=== PATIENT | male | born 2000 | race Caucasian/White ===

== ENCOUNTER 2019-01-07 11:02 | Emergency (ER) | payer OTHER ==
[2019-01-07] MEDS ORDERED: SODIUM CHLORIDE 0.9% 1,000 ML IV ONE (12:23)
[2019-01-07] MEDS ORDERED: ONDANSETRON 4 MG/2 ML VIAL IVP STA (12:23)
[2019-01-07] MEDS ORDERED: KETOROLAC 30 MG/ML VIAL IVP STA (12:23)
--- NOTE | 2019-01-07 12:26 | ED Physician Documentation ---
PD HPI HEADACHE - Stated complaint Stated Complaint: VOMITTING ABD PX - Chief complaint Chief Complaint: Abd Pain - History obtained from History obtained from: Patient - History of Present Illness Timing - onset: Yesterday Timing - details: Still present Worst headache ever?: Worst headache ever? (No) Location: Front Associated symptoms: Nausea, Vomiting Similar symptoms before: No diagnosis - Additional information Additional information: The patient is an otherwise healthy 18-year-old male who presents with headache and vomiting that started last night and continued today. His headache is generalized. He reports mild left upper quadrant abdominal discomfort. He denies fever, cough, diarrhea, or dysuria. He reports having similar symptoms in the past with "viral bug." Review of Systems Constitutional: denies: Fever Eyes: denies: Decreased vision Ears: denies: Tinnitus/ringing Nose: denies: Congestion Throat: denies: Sore throat Cardiac: denies: Chest pain / pressure Respiratory: denies: Dyspnea, Cough GI: reports: Abdominal Pain (mild), Nausea, Vomiting. denies: Diarrhea : denies: Dysuria Skin: denies: Rash Musculoskeletal: denies: Neck pain Neurologic: reports: Headache. denies: Focal weakness, Numbness PD PAST MEDICAL HISTORY - Past Medical History Cardiovascular: None Respiratory: None Neuro: None Endocrine/Autoimmune: None - Present Medications Home Medications: Ambulatory Orders Medication Instructions Recorded Confirmed Promethazine [Phenergan] 25 mg PO Q6H PRN #10 tab 01/07/19 - Allergies Allergies/Adverse Reactions: Allergies Allergy/AdvReac Type Severity Reaction Status Date / Time No Known Drug Allergies Allergy Verified 01/07/19 11:07 - Social History Does the pt smoke?: No PD ED PE NORMAL - Vitals Vital signs reviewed: Yes (normal) - General General: Alert and oriented X 3, Well developed/nourished - HEENT HEENT: Atraumatic, PERRL, EOMI, Ears normal, Pharynx benign, Other (Fundi without papilledema.) - Neck Neck: Supple, no meningeal sign, No adenopathy - Cardiac Cardiac: RRR, No murmur - Respiratory Respiratory: No respiratory distress, Clear bilaterally - Abdomen Abdomen: Soft, Non tender, No organomegaly - Back Back: No CVA TTP - Derm Derm: No rash - Extremities Extremities: No edema, No calf tenderness / cord - Neuro Neuro: Alert and oriented X 3, No motor deficit, No sensory deficit Results - Vitals Vitals: Vital Signs - 24 hr 01/07/19 11:07 Temperature 36.6 C Heart Rate 71 Respiratory 16 Rate O2 Saturation 100 Oxygen O2 Source Room air - Labs Labs: Laboratory Tests 01/07/19 01/07/19 12:31 12:31 WBC 6.5 RBC 5.49 Hgb 15.3 Hct 46.3 MCV 84.3 MCH 27.9 MCHC 33.1 RDW 14.4 Plt Count 209 MPV 9.6 Neut # (Auto) 4.6 Lymph # (Auto) 1.3 L [place] # (Auto) 0.4 Eos # (Auto) 0.1 Baso # (Auto) 0.1 Absolute Nucleated RBC 0.00 Nucleated RBC % 0.0 Sodium 138 Potassium 4.4 Chloride 103 Carbon Dioxide 28 Anion Gap 7.0 BUN 11 Creatinine 0.8 Estimated GFR (MDRD) 125 Glucose 97 Calcium 9.6 Total Bilirubin 0.4 AST 119 H ALT 60 Alkaline Phosphatase 55 Total Protein 7.5 Albumin 4.7 Globulin 2.8 Albumin/Globulin Ratio 1.7 Lipase 36 PD MEDICAL DECISION MAKING - ED course Complexity details: reviewed results, re-evaluated patient, considered differential, d/w patient ED course: The patient's presentation is most consistent with headache with associated n ausea and vomiting. There is no evidence of acute intra-abdominal process. His abdomen is benign on examination. CBC and chemistry panel are normal. His presentation does not suggest meningitis, intracranial hemorrhage, temporal arteritis, or pseudotumor cerebri. Treatment in the emergency department included administration of normal saline 1 L IV, and Zofran 4 mg IV, and ketorolac 30 mg IV. His symptoms improved with the above treatment. He is being discharged with prescription for Phenergan. I discussed with him symptomatic treatment, outpatient follow-up, as well as potentially worrisome signs or symptoms that should prompt reevaluation in the emergency department. Departure - Departure Disposition: 01 Home, Self Care Clinical Impression: Headache Qualifiers: Headache type: unspecified Headache chronicity pattern: acute headache Intractability: not intractable Qualified Code(s): R51 - Headache Vomiting Qualifiers: Vomiting type: unspecified Vomiting Intractability: non-intractable Nausea presence: with nausea Qualified Code(s): R11.2 - Nausea with vomiting, unspecified Condition: Stable Instructions: ED Cephalgia Unspecified Follow-Up: [facility] Carlton [Provider Group] Prescriptions: Promethazine [Phenergan] 25 mg PO Q6H PRN #10 tab PRN Reason: Nausea / Vomiting Comments: Drink plenty of fluids. You can use Phenergan as prescribed if needed for nausea. Follow-up with your primary physician within 1 to 2 weeks if not completely resolved. Return to the emergency department if you develop increasing abdominal pain, persistent vomiting, increasing headache, or otherwise worsening symptoms. Forms: Activity restrictions
[2019-01-07 12:34] LABS: BASOPHILS # (AUTO) 0.1 10^3/uL (0.0-0.1); BASOPHILS % (AUTO) 0.8 %; EOSINOPHILS # (AUTO) 0.1 10^3/uL (0.0-0.7); EOSINOPHILS % (AUTO) 1.2 %; HGB - HEMOGLOBIN 15.3 g/dL (14.0-18.0); LYMPHOCYTES # (AUTO) 1.3 10^3/uL (1.5-3.5); LYMPHOCYTES % (AUTO) 19.8 %; MEAN CORPUSCULAR HEMOGLOBIN 27.9 pg (27.0-31.0); MEAN CORPUSCULAR HGB CONC 33.1 g/dL (32.0-36.0); MEAN CORPUSCULAR VOLUME 84.3 fL (80.0-94.0); MEAN PLATELET VOLUME 9.6 fL (7.4-11.4); MONOCYTES # (AUTO) 0.4 10^3/uL (0.0-1.0); MONOCYTES % (AUTO) 6.6 %; NEUTROPHILS # (AUTO) 4.6 10^3/uL (1.5-6.6); NEUTROPHILS % (AUTO) 71.6 %; PLT - PLATELET COUNT 209 10^3/uL (130-450); RED BLOOD COUNT 5.49 10^6/uL (4.70-6.10); RED CELL DISTRIBUTION WIDTH 14.4 % (12.0-15.0); WHITE BLOOD COUNT 6.5 x10^3/uL (4.8-10.8)
[2019-01-07 12:49] LABS: ALBUMIN 4.7 g/dL (3.2-5.5); ALBUMIN/GLOBULIN RATIO 1.7 (1.0-2.2); BILIRUBIN,TOTAL 0.4 mg/dL (0.2-1.0); CALCIUM 9.6 mg/dL (8.5-10.3); CREATININE 0.8 mg/dL (0.6-1.2); TOTAL PROTEIN 7.5 g/dL (6.7-8.2)
[2019-01-07 14:12] VITALS: BP 129/52
== END 2019-01-07 14:13 | disposition home or self-care (01) ==
LOC: ED 11:02
DX: R51 Headache (principal); R11.2 Nausea with vomiting, unspecified
CPT/HCPCS: 36415; 80053; 83690; 85025; 96361; 96374; 99283

== ENCOUNTER 2019-01-13 07:19 | Emergency (ER) | payer OTHER ==
--- NOTE | 2019-01-13 07:33 | ED Physician Documentation ---
PD HPI NVD - Stated complaint Stated Complaint: N/V - Chief complaint Chief Complaint: Abd Pain - History obtained from History obtained from: Patient - History of Present Illness Timing - onset: Yesterday (afternoon, very shortly after eating lunch (food from the "[employer]"). Had similar about a week ago for a half day then better. Was feeling okay through the week without dietary limitations. Onset nausea and vomiting yesterday, continued into today. Last emesis about 3-4 hours ago.) Timing - duration: Days (1/2) Timing - details: Abrupt onset, Still present Associated symptoms: Abdominal pain (Mainly upper crampy pain.), Loss of appetite, Other (no diarrhea). No: Fever, Chest pain, Hematemesis Contributing factors: Sick contact (1 of his coworkers have similar symptoms and is here with him to be seen as well.), Bad food (He thinks it might be food related as onset did with an 10 to 15 minutes after eating.). No: Travel Improved by: No: Vomiting Worsened by: Eating Similar symptoms before: Diagnosis (similar a week ago, felt possible viral GE and lasted just 1/2 day.) Review of Systems Constitutional: denies: Fever, Chills, Myalgias Nose: denies: Rhinorrhea / runny nose, Congestion Throat: denies: Sore throat Respiratory: denies: Cough GI: reports: Abdominal Pain (upper to mid abd), Nausea, Vomiting. denies: Diarrhea Neurologic: reports: Generalized weakness. denies: Near syncope PD PAST MEDICAL HISTORY - Past Medical History Past Medical History: No Cardiovascular: None Respiratory: None Neuro: None Endocrine/Autoimmune: None - Past Surgical History Past Surgical History: Yes - Present Medications Home Medications: Ambulatory Orders Medication Instructions Recorded Confirmed Famotidine 20 mg PO DAILY #15 tablet 01/13/19 Mag Hydrox/Al Hydrox/Simeth [Adv 10 ml PO Q4H PRN #355 ml 01/13/19 Antacid-Antigas Liquid] Ondansetron Odt [Zofran] 4 mg TL Q6H PRN #10 tablet 01/13/19 - Allergies Allergies/Adverse Reactions: Allergies Allergy/AdvReac Type Severity Reaction Status Date / Time No Known Drug Allergies Allergy Verified 01/13/19 07:55 - Social History Does the pt smoke?: No Smoking Status: Never smoker Does the pt drink ETOH?: No Does the pt have substance abuse?: No - Immunizations Immunizations are current?: No Immunizations: TDAP >10years/unknown PD ED PE NORMAL - Vitals Vital signs reviewed: Yes - General General: Alert and oriented X 3, No acute distress, Well developed/nourished - HEENT HEENT: Pharynx benign. No: Moist mucous membranes - Neck Neck: Supple, no meningeal sign, No adenopathy - Cardiac Cardiac: RRR, No murmur - Respiratory Respiratory: Clear bilaterally - Abdomen Abdomen: Normal bowel sounds, Soft, Non distended, No organomegaly, Other (Mild general tenderness but particularly the epigastric area without any guarding percussion or rebound tenderness. He is not tender in the right lower quadrant per se.) - Rectal Rectal: Deferred - Back Back: No CVA TTP - Derm Derm: Normal color, Warm and dry Results - Vitals Vitals: Vital Signs - 24 hr 01/13/19 07:23 Temperature 36.8 C Heart Rate 72 Respiratory 18 Rate Blood Pressure 109/55 L O2 Saturation 99 Oxygen O2 Source Room air Departure - Departure Disposition: 01 Home, Self Care Clinical Impression: Nausea and vomiting Qualifiers: Vomiting type: unspecified Vomiting Intractability: non-intractable Qualified Code(s): R11.2 - Nausea with vomiting, unspecified Abdominal pain Qualifiers: Abdominal location: upper abdomen, unspecified Qualified Code(s): R10.10 - Upper abdominal pain, unspecified Condition: Stable Record reviewed to determine appropriate education?: Yes Instructions: ED Gastroenteritis Vs Food Poison Follow-Up: ANNA Carlton [Provider Group] Prescriptions: Famotidine 20 mg PO DAILY #15 tablet Mag Hydrox/Al Hydrox/Simeth [Adv Antacid-Antigas Liquid] 10 ml PO Q4H PRN #355 ml PRN Reason: Abdominal Pain Ondansetron Odt [Zofran] 4 mg TL Q6H PRN #10 tablet PRN Reason: Nausea / Vomiting Comments: Small frequent fluids and bland food today and progress diet as able. Use ondansetron as needed for nausea. Add Mylanta antacid as needed for upset stomach. Since you had this episode and an episode last week, I presume your stomach is rather irritated and so I would suggest a acid reducing medicine (famotidine) daily for a week or 2 to allow better healing. Rest off work today. I would anticipate improvement into tomorrow. Recheck if not better tomorrow. Forms: Activity restrictions
[2019-01-13] MEDS ORDERED: ONDANSETRON ODT 4 MG TABLET TL STA (07:50)
[2019-01-13] MEDS ORDERED: ACETAMINOPHEN 325 MG TABLET PO STA (07:51)
[2019-01-13] MEDS ORDERED: MAG HYDROX/AL HYDROX/SIMETH 30 ML UDC PO STA (07:51)
[2019-01-13 09:32] VITALS: BP 111/53
== END 2019-01-13 09:31 | disposition home or self-care (01) ==
LOC: ED 07:19
DX: R10.13 Epigastric pain (principal); R11.2 Nausea with vomiting, unspecified
CPT/HCPCS: 99283; A9270; Q0162

== ENCOUNTER 2019-12-24 14:43 | Emergency (ER) | payer OTHER ==
[2019-12-24 14:58] VITALS: BP 119/75
--- NOTE | 2019-12-24 15:27 | ED Physician Documentation ---
PD HPI NVD - Stated complaint Stated Complaint: VOMITING - Chief complaint Chief Complaint: Abd Pain - History obtained from History obtained from: Patient - History of Present Illness Timing - onset: Enter time (0900), Today Timing - duration: Hours Timing - details: Abrupt onset, Now resolved Associated symptoms: Abdominal pain Contributing factors: Bad food Improved by: Vomiting Worsened by: Eating Similar symptoms before: Diagnosis (gastroenteritis) Recently seen: Not recently seen - Additonal information Additional information: 19-year-old male with past visits for abdominal pain and vomiting has developed vomiting after eating a turkey burger this morning. He works in the [employer] and he states he cooked with a burger it looks done it tasted well and about half an hour after eating he had abdominal pain and vomited. He does indicate that he takes ibuprofen periodically for his abdominal pain and he gets abdominal pain quite frequently.He does not always take this with food. He relates that he has tried some Tums with some improvement in his abdominal pain but that he frequently gets pains in his abdomen that he has had episodes of vomiting intermittently as well. He has not been on a proton pump inhibitor or an H2 kirstin previously. Review of Systems Constitutional: denies: Fever Eyes: denies: Decreased vision Ears: denies: Ear pain Nose: denies: Rhinorrhea / runny nose Throat: denies: Sore throat Cardiac: denies: Chest pain / pressure, Palpitations Respiratory: denies: Dyspnea, Cough GI: reports: Abdominal Pain, Nausea, Vomiting : denies: Dysuria, Frequency PD PAST MEDICAL HISTORY - Past Medical History Past Medical History: No Cardiovascular: None Respiratory: None Neuro: None Endocrine/Autoimmune: None GI: None : None HEENT: None Psych: None Musculoskeletal: None Derm: None - Past Surgical History Past Surgical History: Yes - Present Medications Home Medications: Ambulatory Orders Medication Instructions Recorded Confirmed Famotidine 20 mg PO DAILY #15 tablet 01/13/19 Mag Hydrox/Al Hydrox/Simeth [Adv 10 ml PO Q4H PRN #355 ml 01/13/19 Antacid-Antigas Liquid] Ondansetron Odt [Zofran] 4 mg TL Q6H PRN #10 tablet 01/13/19 - Allergies Allergies/Adverse Reactions: Allergies Allergy/AdvReac Type Severity Reaction Status Date / Time No Known Drug Allergies Allergy Verified 12/24/19 14:56 - Social History Does the pt smoke?: No Smoking Status: Never smoker Does the pt drink ETOH?: No Does the pt have substance abuse?: No - Immunizations Immunizations are current?: No Immunizations: TDAP >10years/unknown - POLST Patient has POLST: No PD ED PE NORMAL - Vitals Vital signs reviewed: Yes (Normal) - General General: Alert and oriented X 3, No acute distress, Well developed/nourished - HEENT HEENT: Atraumatic, PERRL, EOMI - Neck Neck: Supple, no meningeal sign, No bony TTP - Cardiac Cardiac: RRR, No murmur - Respiratory Respiratory: No respiratory distress, Clear bilaterally - Abdomen Abdomen: Normal bowel sounds, Soft, Non tender, Non distended, No organomegaly - Back Back: No CVA TTP, No spinal TTP - Derm Derm: Normal color, Warm and dry, No rash - Extremities Extremities: No deformity, No edema - Neuro Neuro: Alert and oriented X 3, hot worker 2-12 intact, No motor deficit, No sensory deficit, Normal speech Eye Opening: Spontaneous Motor: Obeys Commands Verbal: Oriented GCS Score: 15 - Psych Psych: Normal mood, Normal affect Results - Vitals Vitals: Vital Signs - 24 hr 12/24/19 14:57 Temperature 36.8 C Heart Rate 75 Respiratory 16 Rate Blood Pressure 119/75 O2 Saturation 100 Oxygen O2 Source Room air PD MEDICAL DECISION MAKING - ED course Complexity details: reviewed old records, reviewed results, re-evaluated patient, considered differential, d/w patient ED course: 19-year-old male with what sounds like a history of gastritis that has not been treated has had an episode of vomiting after eating this morning. He has had these episodes previously and they have just generally been benign and he does have some medicine for nausea at home. He does not feel like he can go back to work this afternoon. I encouraged the patient to begin treatment for gastritis with Pepcid AC and take this on a regular basis and to follow-up with his primary care doctor. Departure - Departure Disposition: 01 Home, Self Care Clinical Impression: Gastritis Qualifiers: Gastritis type: unspecified gastritis Chronicity: acute Gastritis bleeding: without bleeding Qualified Code(s): K29.00 - Acute gastritis without bleeding Condition: Stable Instructions: ED PUD Vs Gastritis Follow-Up: ANNA Carlton [Provider Group] Comments: By your history it sounds like you have gastritis or irritation to the stomach lining this usually requires a course of some medication to reduce the acid in your stomach for at least 2 weeks. My recommendation is to take Pepcid AC daily for the next 2 weeks. In addition I recommend not taking ibuprofen and avoid alcohol. You will likely have significant improvement in your symptoms and you may have recurrence in your symptoms when you stop your medication. Follow-up with your primary care doctor further work-up might be indicated. Forms: Activity restrictions
== END 2019-12-24 15:35 | disposition home or self-care (01) ==
LOC: ED 14:43
DX: K29.00 Acute gastritis without bleeding (principal)
CPT/HCPCS: 99282; 99284

== ENCOUNTER 2020-01-22 01:44 | Emergency (ER) | payer OTHER ==
--- NOTE | 2020-01-22 02:12 | ED Physician Documentation ---
PD HPI NVD - Stated complaint Stated Complaint: ABD PX/VOMITING - Chief complaint Chief Complaint: Abd Pain - History obtained from History obtained from: Patient - History of Present Illness Timing - onset: How many hours ago (2) Timing - details: Abrupt onset, Waxing and waning Pain level now: 4 Associated symptoms: Abdominal pain Improved by: Other (no ameliorating factors) Worsened by: Other (no exacerbating factors) Recently seen: Emergency Dept (T+R from this ED one month ago for similar symptoms) - Additonal information Additional information: c/o nausea, vomiting, and abdominal pain across upper abdomen. Onset shortly after eating while at work, approximately 2 hours [employer]. He has had similar episodes in the past (including T+R from this ED 1 month ago) Review of Systems Constitutional: denies: Fever Cardiac: reports: Reviewed and negative Respiratory: reports: Reviewed and negative GI: reports: Abdominal Pain, Nausea, Vomiting. denies: Constipation, Diarrhea, Hematemesis, Bloody / black stool : denies: Dysuria, Frequency Musculoskeletal: denies: Back pain PD PAST MEDICAL HISTORY - Past Medical History Cardiovascular: None Respiratory: None Neuro: None Endocrine/Autoimmune: None GI: None : None HEENT: None Psych: None Musculoskeletal: None Derm: None - Past Surgical History Past Surgical History: Yes - Present Medications Home Medications: Ambulatory Orders Medication Instructions Recorded Confirmed Lidocaine HCl [Lidocaine HCl 15 ml MM Q4HR #90 ml 01/22/20 Viscous] Omeprazole 20 mg PO DAILY #14 capsule. 01/22/20 - Allergies Allergies/Adverse Reactions: Allergies Allergy/AdvReac Type Severity Reaction Status Date / Time No Known Drug Allergies Allergy Verified 01/22/20 01:58 - Social History Does the pt smoke?: No Smoking Status: Never smoker Does the pt drink ETOH?: No Does the pt have substance abuse?: No - Immunizations Immunizations are current?: No Immunizations: TDAP >10years/unknown - POLST Patient has POLST: No PD ED PE NORMAL - Vitals Vital signs reviewed: Yes - General General: Alert and oriented X 3, No acute distress, Well developed/nourished - HEENT HEENT: Moist mucous membranes - Cardiac Cardiac: RRR, No murmur - Respiratory Respiratory: No respiratory distress, Clear bilaterally - Abdomen Abdomen: Normal bowel sounds, Soft, Non tender, Non distended - Back Back: No CVA TTP Results - Vitals Vitals: Vital Signs - 24 hr 01/22/20 01/22/20 01:54 03:26 Temperature 36.7 C Heart Rate 69 65 Respiratory 16 16 Rate Blood Pressure 116/53 L 114/63 O2 Saturation 98 100 Oxygen O2 Source Room air - Labs Labs: Laboratory Tests 01/22/20 01/22/20 02:30 02:30 WBC 10.0 RBC 4.81 Hgb 14.4 Hct 42.7 MCV 88.8 MCH 29.9 MCHC 33.7 RDW 12.5 Plt Count 236 MPV 11.2 Neut # (Auto) 7.0 H Lymph # (Auto) 1.6 [place] # (Auto) 0.7 Eos # (Auto) 0.5 Baso # (Auto) 0.1 Absolute Nucleated RBC 0.00 Nucleated RBC % 0.0 Sodium 138 Potassium 3.7 Chloride 104 Carbon Dioxide 28 Anion Gap 6.0 BUN 12 Creatinine 0.9 Estimated GFR (MDRD) 108 Glucose 103 H Calcium 9.3 Total Bilirubin 0.9 AST 24 ALT 18 Alkaline Phosphatase 53 Total Protein 7.5 Albumin 4.7 Globulin 2.8 Albumin/Globulin Ratio 1.7 Lipase 31 PD MEDICAL DECISION MAKING - ED course Complexity details: reviewed old records, reviewed results, re-evaluated patient, considered differential, d/w patient Departure - Departure Disposition: 01 Home, Self Care Clinical Impression: Abdominal pain Qualifiers: Abdominal location: upper abdomen, unspecified Qualified Code(s): R10.10 - Upper abdominal pain, unspecified Condition: Good Instructions: ED Abdominal Pain Unkn Cause Male Follow-Up: ANNA Carlton [Provider Group] Prescriptions: Lidocaine HCl [Lidocaine HCl Viscous] 15 ml MM Q4HR #90 ml Omeprazole 20 mg PO DAILY #14 capsule.dr Discharge Date/Time: 01/22/20 03:26
[2020-01-22] MEDS: MAG HYDROX/AL HYDROX/SIMETH 30 ML UDC PO STA (02:35)
[2020-01-22] MEDS: PANTOPRAZOLE 40 MG VIAL IVP STA (02:35)
[2020-01-22] MEDS: LIDOCAINE VISCOUS 2% 15 ML UDC MM STA (02:36)
[2020-01-22] MEDS: SODIUM CHLORIDE 0.9% 1,000 ML IV STA (02:36)
[2020-01-22 02:38] LABS: BASOPHILS # (AUTO) 0.1 10^3/uL (0.0-0.1); BASOPHILS % (AUTO) 0.5 %; EOSINOPHILS # (AUTO) 0.5 10^3/uL (0.0-0.7); EOSINOPHILS % (AUTO) 5.2 %; HGB - HEMOGLOBIN 14.4 g/dL (14.0-18.0); LYMPHOCYTES # (AUTO) 1.6 10^3/uL (1.5-3.5); LYMPHOCYTES % (AUTO) 16.4 %; MEAN CORPUSCULAR HEMOGLOBIN 29.9 pg (27.0-31.0); MEAN CORPUSCULAR HGB CONC 33.7 g/dL (32.0-36.0); MEAN CORPUSCULAR VOLUME 88.8 fL (80.0-94.0); MEAN PLATELET VOLUME 11.2 fL (7.4-11.4); MONOCYTES # (AUTO) 0.7 10^3/uL (0.0-1.0); MONOCYTES % (AUTO) 7.2 %; NEUTROPHILS % (AUTO) 70.3 %; PLT - PLATELET COUNT 236 10^3/uL (130-450); RED BLOOD COUNT 4.81 10^6/uL (4.70-6.10); RED CELL DISTRIBUTION WIDTH 12.5 % (12.0-15.0)
[2020-01-22 02:52] LABS: ALBUMIN 4.7 g/dL (3.2-5.5); ALBUMIN/GLOBULIN RATIO 1.7 (1.0-2.2); BILIRUBIN,TOTAL 0.9 mg/dL (0.2-1.0); CALCIUM 9.3 mg/dL (8.5-10.3); CREATININE 0.9 mg/dL (0.6-1.2); TOTAL PROTEIN 7.5 g/dL (6.7-8.2)
[2020-01-22 03:27] VITALS: BP 114/63
== END 2020-01-22 03:26 | disposition home or self-care (01) ==
LOC: ED 01:44
DX: R10.10 Upper abdominal pain, unspecified (principal); R11.2 Nausea with vomiting, unspecified
CPT/HCPCS: 36415; 80053; 83690; 85025; 96374; 99283; 99284; A9270

== ENCOUNTER 2020-08-12 06:31 | Emergency (ER) | payer OTHER ==
--- NOTE | 2020-08-12 07:19 | ED Physician Documentation ---
PD HPI CHEST PAIN - Stated complaint Stated Complaint: N/V - Chief complaint Chief Complaint: Abd Pain - History obtained from History obtained from: Patient - Additional information Additional information: 20-year-old gentleman, active duty in the [employer]. He has frequent bouts of nausea, he states that it seems to come with season changes and has it about once every 3 to 4 months. He had an episode 2 nights ago where he was nauseous with mild right-sided chest pain, and this morning this recurred. He is feeling better now and has no symptoms at this point. His weights been stable. He is never had an endoscopy. States that in the past he has been seen here nausea medicine has been helpful. Bowel movements are normal. No history of abdominal or other surgeries. Review of Systems Constitutional: denies: Fever, Chills, Weight Loss Cardiac: denies: Palpitations Respiratory: denies: Dyspnea, Cough GI: reports: Nausea, Vomiting. denies: Abdominal Pain, Diarrhea PD PAST MEDICAL HISTORY - Past Medical History Cardiovascular: None Respiratory: None Neuro: None Endocrine/Autoimmune: None GI: None : None HEENT: None Psych: None Musculoskeletal: None Derm: None - Past Surgical History Past Surgical History: Yes - Present Medications Home Medications: Ambulatory Orders Medication Instructions Recorded Confirmed Ondansetron Odt [Zofran] 4 mg TL Q6H PRN #10 tablet 08/12/20 - Allergies Allergies/Adverse Reactions: Allergies Allergy/AdvReac Type Severity Reaction Status Date / Time No Known Drug Allergies Allergy Verified 08/12/20 06:56 - Social History Does the pt smoke?: No Smoking Status: Never smoker Does the pt drink ETOH?: No Does the pt have substance abuse?: No - Immunizations Immunizations are current?: Yes Immunizations: TDAP >10years/unknown - POLST Patient has POLST: No PD ED PE NORMAL - Vitals Vital signs reviewed: Yes - General General: Alert and oriented X 3, No acute distress - Neck Neck: Supple, no meningeal sign, No bony TTP - Cardiac Cardiac: RRR, No murmur - Respiratory Respiratory: No respiratory distress, Clear bilaterally - Abdomen Abdomen: Non tender - Back Back: No CVA TTP, No spinal TTP - Derm Derm: Normal color, Warm and dry - Extremities Extremities: No edema, No calf tenderness / cord - Neuro Neuro: Alert and oriented X 3, Normal speech Results - Vitals Vitals: Vital Signs - 24 hr 08/12/20 08/12/20 06:40 06:55 Temperature 36.7 C 36.7 C Heart Rate 59 L 59 L Respiratory 18 18 Rate Blood Pressure 128/85 H 128/85 H O2 Saturation 100 100 Oxygen O2 Source Room air - EKG (time done) 0718 Rate: Rate (enter#) (67) Rhythm: NSR [place]: Normal Intervals: Normal MA QRS: Normal Ischemia: Normal ST segments Computer interpretation: Agree with computer PD MEDICAL DECISION MAKING - ED course ED course: 20-year-old gentleman has recurrent nausea and vomiting seasonally. States nausea medicine has been helpful. His symptoms are gone at this point, and his exam is benign. Given the complaint of chest pain, an EKG was done without pertinent positive findings, only sinus arrhythmia. Departure - Departure Disposition: 01 Home, Self Care Clinical Impression: Nausea and vomiting Qualifiers: Vomiting type: unspecified Vomiting Intractability: non-intractable Qualified Code(s): R11.2 - Nausea with vomiting, unspecified Instructions: ED Nausea Vomiting Prescriptions: Ondansetron Odt [Zofran] 4 mg TL Q6H PRN #10 tablet PRN Reason: Nausea / Vomiting Comments: [place] Consider referral for upper endoscopy given recurrent symptoms. Return if worse. Forms: Activity restrictions
[2020-08-12 07:33] VITALS: BP 106/56
== END 2020-08-12 07:33 | disposition home or self-care (01) ==
LOC: ED 06:31
DX: R11.2 Nausea with vomiting, unspecified (principal); R07.9 Chest pain, unspecified
CPT/HCPCS: 93005; 99283; 99284

== ENCOUNTER 2020-12-14 15:47 | Emergency (ER) | payer OTHER ==
[2020-12-14 17:18] LABS: BASOPHILS % (AUTO) 0.4 %; EOSINOPHILS % (AUTO) 0.4 %; LYMPHOCYTES # (AUTO) 1.3 10^3/uL (1.5-3.5); LYMPHOCYTES % (AUTO) 12.4 %; MEAN CORPUSCULAR HEMOGLOBIN 28.8 pg (27.0-31.0); MEAN CORPUSCULAR HGB CONC 33.3 g/dL (32.0-36.0); MEAN CORPUSCULAR VOLUME 86.3 fL (80.0-94.0); MEAN PLATELET VOLUME 10.9 fL (7.4-11.4); MONOCYTES # (AUTO) 0.6 10^3/uL (0.0-1.0); MONOCYTES % (AUTO) 5.1 %; NEUTROPHILS # (AUTO) 8.8 10^3/uL (1.5-6.6); NEUTROPHILS % (AUTO) 81.3 %; PLT - PLATELET COUNT 189 10^3/uL (130-450); RED BLOOD COUNT 4.52 10^6/uL (4.70-6.10); RED CELL DISTRIBUTION WIDTH 12.5 % (12.0-15.0); WHITE BLOOD COUNT 10.8 x10^3/uL (4.8-10.8)
[2020-12-14 17:32] LABS: ALBUMIN 4.3 g/dL (3.2-5.5); ALBUMIN/GLOBULIN RATIO 1.8 (1.0-2.2); BILIRUBIN,TOTAL 0.3 mg/dL (0.2-1.0); CALCIUM 8.4 mg/dL (8.5-10.3); CREATININE 0.9 mg/dL (0.6-1.2); POTASSIUM 3.4 mmol/L (3.5-5.0); TOTAL PROTEIN 6.7 g/dL (6.7-8.2)
[2020-12-14] MEDS ORDERED: ONDANSETRON 4 MG/2 ML VIAL IVP STA (17:46)
[2020-12-14 18:23] LABS: BILIRUBIN,URINE NEGATIVE (NEGATIVE); GLUCOSE, URINE (UA) NEGATIVE (NEGATIVE); KETONES,URINE (UA) TRACE mg/dL (NEGATIVE); LEUKOCYTE ESTERASE, URINE NEGATIVE (NEGATIVE); NITRITE,URINE NEGATIVE (NEGATIVE); OCCULT BLOOD,URINE NEGATIVE (NEGATIVE); PH,URINE 6.5 PH (5.0-7.5); PROTEIN,URINE NEGATIVE (NEGATIVE); UROBILINOGEN,URINE 0.2 (NORMAL) E.U./dL (NORMAL)
[2020-12-14 18:25] LABS: CLARITY,URINE CLEAR (CLEAR)
--- NOTE | 2020-12-14 18:27 | ED Physician Documentation ---
PD HPI NVD - Stated complaint Stated Complaint: N/V - Chief complaint Chief Complaint: Abd Pain - History obtained from History obtained from: Patient, EMS - History of Present Illness Timing - onset: How many hours ago (2) Timing - duration: Hours (2) Timing - details: No: Abrupt onset, Gradual onset, Still present, Now resolved, Constant, Intermittant, Waxing and waning, Still present in ED Pain level max: 5 Pain level now: 0 Associated symptoms: No: Fever, Abdominal pain, Chest pain, Hematemesis, Melena, Hematochezia, Dizzy, Near syncope / syncope, Loss of appetite Contributing factors: No: Sick contact, Bad food, Travel, Recent antibiotics, A lcohol use, Anticoagulated, Diabetes Improved by: Vomiting Worsened by: Eating Recently seen: Not recently seen - Additonal information Additional information: Patient is a 20-year-old male who states that he ate lunch today when he began to have nausea and vomiting afterwards. States that this lasted for about 2 hours. He states he feels better now. No bad food that he is aware of. No fevers. No chills. Did have crampy abdominal pain initially but this is since resolved. No blood in the vomit. No blood in the stool. Worse with eating, better with vomiting. Review of Systems Ten Systems: 10 systems reviewed and negative Constitutional: denies: Fever, Chills Cardiac: denies: Chest pain / pressure Respiratory: denies: Cough Skin: denies: Rash Musculoskeletal: denies: Neck pain, Back pain Neurologic: denies: Headache PD PAST MEDICAL HISTORY - Past Medical History Past Medical History: Yes Cardiovascular: None Respiratory: None Neuro: None Endocrine/Autoimmune: None GI: GERD : None HEENT: None Psych: Anxiety, Panic attacks Musculoskeletal: None Derm: None - Past Surgical History Past Surgical History: Yes - Present Medications Home Medications: Ambulatory Orders Medication Instructions Recorded Confirmed Ondansetron Odt [Zofran] 4 mg TL Q6H PRN #10 tablet 08/12/20 12/14/20 Ondansetron Odt [Zofran] 4 mg TL Q6H PRN #10 tablet 12/14/20 - Allergies Allergies/Adverse Reactions: Allergies Allergy/AdvReac Type Severity Reaction Status Date / Time No Known Drug Allergies Allergy Verified 12/14/20 15:53 - Social History Does the pt smoke?: No Smoking Status: Never smoker Does the pt drink ETOH?: Yes Does the pt have substance abuse?: No - Immunizations Immunizations are current?: Yes Immunizations: TDAP >10years/unknown - POLST Patient has POLST: No PD ED PE NORMAL - Vitals Vital signs reviewed: Yes - General General: Alert and oriented X 3, No acute distress, Well developed/nourished - HEENT HEENT: PERRL, Moist mucous membranes - Neck Neck: Supple, no meningeal sign - Cardiac Cardiac: RRR, Strong equal pulses - Respiratory Respiratory: No respiratory distress, Clear bilaterally - Abdomen Abdomen: Soft, Non tender, Non distended - Derm Derm: Warm and dry, No rash - Extremities Extremities: No edema - Neuro Neuro: Alert and oriented X 3 - Psych Psych: Normal mood, Normal affect Results - Vitals Vitals: Vital Signs - 24 hr 12/14/20 12/14/20 12/14/20 15:54 16:17 18:16 Temperature 36.6 C Heart Rate 78 62 69 Respiratory 16 16 16 Rate Blood Pressure 123/68 101/65 100/45 L O2 Saturation 100 100 100 12/14/20 18:34 Temperature 37 C Heart Rate 97 Respiratory 16 Rate Blood Pressure 110/50 L O2 Saturation 99 Oxygen O2 Source Room air - Labs Labs: Laboratory Tests 12/14/20 12/14/20 12/14/20 17:12 17:12 18:10 WBC 10.8 RBC 4.52 L Hgb 13.0 L Hct 39.0 L MCV 86.3 MCH 28.8 MCHC 33.3 RDW 12.5 Plt Count 189 MPV 10.9 Neut # (Auto) 8.8 H Lymph # (Auto) 1.3 L [place] # (Auto) 0.6 Eos # (Auto) 0.0 Baso # (Auto) 0.0 Absolute Nucleated RBC 0.00 Nucleated RBC % 0.0 Sodium 133 L Potassium 3.4 L Chloride 100 L Carbon Dioxide 25 Anion Gap 8.0 BUN 15 Creatinine 0.9 Estimated GFR (MDRD) 107 Glucose 100 Calcium 8.4 L Total Bilirubin 0.3 AST 24 ALT 23 Alkaline Phosphatase 39 L Total Protein 6.7 Albumin 4.3 Globulin 2.4 Albumin/Globulin Ratio 1.8 Lipase 31 Urine Color YELLOW Urine Clarity CLEAR Urine pH 6.5 Ur Specific [place] 1.020 Urine Protein NEGATIVE Urine Glucose (UA) NEGATIVE Urine Ketones TRACE Urine Occult Blood NEGATIVE Urine Nitrite NEGATIVE Urine Bilirubin NEGATIVE Urine Urobilinogen 0.2 (NORMAL) Ur Leukocyte Esterase NEGATIVE Ur Microscopic Review NOT INDICATED Urine Culture Comments NOT INDICATED PD MEDICAL DECISION MAKING - ED course Complexity details: reviewed results, re-evaluated patient, considered differential, d/w patient ED course: Patient is well-appearing, nontoxic. Afebrile. No significant lab abnormalities. Feels better after IV fluids and Zofran. Tolerating p.o. without difficulty. Appears to be likely a foodborne illness given the rapid onset and rapid resolution. Patient counseled regarding signs and symptoms for which I believe and urgent re-evaluation would be necessary. Patient with good understanding of and agreement to plan and is comfortable going home at this time This document was made in part using voice recognition software. While efforts are made to proofread this document, sound alike and grammatical errors may occur. Departure - Departure Disposition: 01 Home, Self Care Clinical Impression: Food poisoning Condition: Good Instructions: ED Gastroenteritis Vs Food Poison Follow-Up: your,doctor in 1 week if not better [Other] Prescriptions: Ondansetron Odt [Zofran] 4 mg TL Q6H PRN #10 tablet PRN Reason: Nausea / Vomiting Comments: This was likely a case of food poisoning today. These episodes tend to come on abruptly and resolve rather quickly. Follow-up with your doctor as needed for further care. You can use the Zofran for any further nausea or vomiting. Discharge Date/Time: 12/14/20 18:34
[2020-12-14 18:34] VITALS: BP 110/50
== END 2020-12-14 18:34 | disposition home or self-care (01) ==
LOC: EDUNIT# → ED 15:47
DX: A05.9 Bacterial foodborne intoxication, unspecified (principal)
CPT/HCPCS: 36415; 80053; 81001; 81003; 83690; 85025; 87086; 96374; 99284

== ENCOUNTER 2021-01-12 18:19 | Emergency (ER) | payer OTHER ==
[2021-01-12 18:27] VITALS: BP 113/59
--- NOTE | 2021-01-12 19:18 | ED Physician Documentation ---
History of Present Illness - Stated complaint Stated Complaint: SOA - Chief complaint Chief Complaint: Resp - History obtained from History obtained from: Patient - History of Present Illness Timing: Today Pain level max: 0 Pain level now: 0 - Additonal information Additional information: 20-year-old male presents to the emergency department stating he had a panic attack today at home. Vomited x2 and was hyperventilating. He states when he arrived in the emergency department symptoms resolved and currently feels better. No fever. No cough. Nothing makes it better or worse. Has had increasing anxiety and panic attacks recently. [place] No suicidal or homicidal ideation. No hallucinations or delusions. Review of Systems Constitutional: denies: Fever, Chills Nose: denies: Rhinorrhea / runny nose, Congestion Throat: denies: Sore throat Cardiac: denies: Chest pain / pressure, Palpitations Respiratory: denies: Cough : denies: Dysuria Skin: denies: Rash Musculoskeletal: denies: Neck pain, Back pain Neurologic: denies: Headache PD PAST MEDICAL HISTORY - Past Medical History Past Medical History: No Cardiovascular: None Respiratory: None Neuro: None Endocrine/Autoimmune: None GI: GERD : None HEENT: None Psych: Anxiety, Panic attacks Musculoskeletal: None Derm: None - Past Surgical History Past Surgical History: Yes - Present Medications Home Medications: Ambulatory Orders Medication Instructions Recorded Confirmed No Known Home Medications 01/12/21 01/12/21 - Allergies Allergies/Adverse Reactions: Allergies Allergy/AdvReac Type Severity Reaction Status Date / Time No Known Drug Allergies Allergy Verified 01/12/21 18:22 - Social History Does the pt smoke?: No Smoking Status: Never smoker Does the pt drink ETOH?: Yes Does the pt have substance abuse?: No - Immunizations Immunizations are current?: Yes Immunizations: TDAP >10years/unknown - POLST Patient has POLST: No PD ED PE NORMAL - Vitals Vital signs reviewed: Yes - General General: Alert and oriented X 3, No acute distress, Well developed/nourished - HEENT HEENT: PERRL, Moist mucous membranes - Neck Neck: Supple, no meningeal sign - Cardiac Cardiac: RRR, Strong equal pulses - Respiratory Respiratory: No respiratory distress, Clear bilaterally - Abdomen Abdomen: Soft, Non tender, Non distended - Derm Derm: Warm and dry - Extremities Extremities: No edema - Neuro Neuro: Alert and oriented X 3, book illustrator 2-12 intact, No motor deficit, No sensory deficit, Normal speech Eye Opening: Spontaneous Motor: Obeys Commands Verbal: Oriented GCS Score: 15 - Psych Psych: Normal mood, Normal affect Results - Vitals Vitals: Vital Signs - 24 hr 01/12/21 18:23 Temperature 36.8 C Heart Rate 62 Respiratory 18 Rate Blood Pressure 113/59 L O2 Saturation 100 Oxygen O2 Source Room air PD MEDICAL DECISION MAKING - ED course Complexity details: considered differential, d/w patient ED course: Patient is asymptomatic in the emergency department. He states that this is similar to his normal panic attack. Patient does not want any further work-up at this time. Recommend that he follow-up closely with his doctor for further care. Patient counseled regarding signs and symptoms for which I believe and urgent re-evaluation would be necessary. Patient with good understanding of and agreement to plan and is comfortable going home at this time This document was made in part using voice recognition software. While efforts are made to proofread this document, sound alike and grammatical errors may occur. Departure - Departure Disposition: 01 Home, Self Care Clinical Impression: Panic attack Vomiting Qualifiers: Vomiting type: unspecified Vomiting Intractability: non-intractable Nausea presence: without nausea Qualified Code(s): R11.11 - Vomiting without nausea Condition: Good Instructions: ED Panic Attack, ED Nausea Vomiting Follow-Up: your,doctor within 1 week [Other] [facility] [Provider Group] Comments: As you stated that your anxiety is increasing today, you need to follow-up with your doctor to discuss your anxiety and treatment going forward. Return if you worsen. Discharge Date/Time: 01/12/21 19:20
== END 2021-01-12 19:20 | disposition home or self-care (01) ==
LOC: ED 18:19
DX: F41.0 Panic disorder [episodic paroxysmal anxiety] (principal)
CPT/HCPCS: 99283; 99284

== ENCOUNTER 2021-01-13 05:52 | Emergency (ER) | payer OTHER ==
[2021-01-13] MEDS ORDERED: LIDOCAINE VISCOUS 2% 15 ML UDC MM STA (06:24)
[2021-01-13] MEDS ORDERED: MAG HYDROX/AL HYDROX/SIMETH 30 ML UDC PO STA (06:24)
[2021-01-13] MEDS ORDERED: diphenhydrAMINE ELIXIR 25 MG/10 ML UDC PO STA (06:24)
[2021-01-13] MEDS ORDERED: hydrOXYzine PAMOATE 25 MG CAPSULE PO STA (06:59)
--- NOTE | 2021-01-13 07:01 | ED Physician Documentation ---
History of Present Illness - Stated complaint Stated Complaint: PANIC ATTACK - Chief complaint Chief Complaint: MHE - History obtained from History obtained from: Patient - Additonal information Additional information: 20-year-old with past medical history of gastroesophageal reflux and anxiety presents with panic attack this morning. Patient states that they have been ramping up recently and he has had to last week and through this week. He has associated gastrointestinal upset that he says is only triggered when he is having a panic attack. Patient otherwise felt normal earlier. Review of Systems Ten Systems: 10 systems reviewed and negative Constitutional: denies: Fever Cardiac: reports: Palpitations. denies: Chest pain / pressure Respiratory: reports: Dyspnea GI: reports: Abdominal Pain, Nausea, Other (Belching). denies: Vomiting Psychiatric: reports: Anxiety PD PAST MEDICAL HISTORY - Past Medical History Past Medical History: Yes Cardiovascular: None Respiratory: None Neuro: None Endocrine/Autoimmune: None GI: GERD : None HEENT: None Psych: Anxiety, Panic attacks Musculoskeletal: None Derm: None - Past Surgical History Past Surgical History: Yes - Present Medications Home Medications: Ambulatory Orders Medication Instructions Recorded Confirmed hydrOXYzine pamoate [Hydroxyzine 25 mg PO Q6H PRN #30 tab 01/13/21 Pamoate] - Allergies Allergies/Adverse Reactions: Allergies Allergy/AdvReac Type Severity Reaction Status Date / Time No Known Drug Allergies Allergy Verified 01/12/21 18:22 - Social History Does the pt smoke?: No Smoking Status: Never smoker Does the pt drink ETOH?: Yes Does the pt have substance abuse?: No - Immunizations Immunizations are current?: Yes Immunizations: TDAP >10years/unknown - POLST Patient has POLST: No PD ED PE NORMAL - Vitals Vital signs reviewed: Yes - General General: Alert and oriented X 3, No acute distress - HEENT HEENT: Atraumatic, PERRL, EOMI - Neck Neck: Supple, no meningeal sign - Cardiac Cardiac: RRR - Respiratory Respiratory: No respiratory distress, Clear bilaterally - Abdomen Abdomen: Non tender, Non distended - Back Back: No CVA TTP - Derm Derm: Normal color, Warm and dry - Extremities Extremities: No deformity - Neuro Neuro: Alert and oriented X 3 - Psych Psych: Other (Initially hyperventilating but with improvement after GI cocktail. Upon reexamination patient is calm with normal mood and affect) Results - Vitals Vitals: Vital Signs - 24 hr 01/13/21 05:58 Temperature 36.3 C L Heart Rate 58 L Respiratory 14 Rate Blood Pressure 103/63 O2 Saturation 100 Oxygen O2 Source Room air PD MEDICAL DECISION MAKING - ED course ED course: 20-year-old man presents with recurrent panic attacks, improved after arrival to the emergency department. I discussed with him the option of pursuing psychiatric treatment and he would like to follow-up with [facility]. He is requesting a work note for couple days. Education given about conservative measures to treat gastroesophageal reflux as well as conservative antianxiety treatments. He will follow up with [facility] in regards to further medical care for his anxiety. Strict return precautions given. Departure - Departure Disposition: Home, Self Care Clinical Impression: Anxiety attack, GERD (gastroesophageal reflux disease) Condition: Good Instructions: Antacids, ED Panic Attack Prescriptions: hydrOXYzine pamoate [Hydroxyzine Pamoate] 25 mg PO Q6H PRN #30 tab PRN Reason: Anxiety Comments: You were seen in the emergency department for a panic attack. Please follow-up with [facility] prior to returning to work. You may need to consider going on an SSRI or antianxiety medication regimen. You also should probably seek out therapy. Please return to the emergency department if you have any new or worsening symptoms or other concerns. Forms: Activity restrictions
[2021-01-13 07:13] VITALS: BP 114/65
== END 2021-01-13 07:15 | disposition home or self-care (01) ==
LOC: ED 05:52
DX: F41.0 Panic disorder [episodic paroxysmal anxiety] (principal); K21.9 Gastro-esophageal reflux disease without esophagitis
CPT/HCPCS: 99282; 99283; A9270

== ENCOUNTER 2021-06-20 18:07 | Emergency (ER) | payer OTHER ==
[2021-06-20] MEDS ORDERED: LIDOCAINE VISCOUS 2% 15 ML UDC MM STA (18:20)
[2021-06-20] MEDS ORDERED: PANTOPRAZOLE 40 MG VIAL IVP STA (18:20)
[2021-06-20] MEDS ORDERED: MAG HYDROX/AL HYDROX/SIMETH 30 ML UDC PO STA (18:21)
[2021-06-20 18:35] LABS: BASOPHILS # (AUTO) 0.1 10^3/uL (0.0-0.1); BASOPHILS % (AUTO) 0.5 %; EOSINOPHILS # (AUTO) 0.1 10^3/uL (0.0-0.7); HCT - HEMATOCRIT 46.2 % (42.0-52.0); HGB - HEMOGLOBIN 15.4 g/dL (14.0-18.0); LYMPHOCYTES # (AUTO) 2.7 10^3/uL (1.5-3.5); LYMPHOCYTES % (AUTO) 28.9 %; MEAN CORPUSCULAR HEMOGLOBIN 28.9 pg (27.0-31.0); MEAN CORPUSCULAR HGB CONC 33.3 g/dL (32.0-36.0); MEAN CORPUSCULAR VOLUME 86.8 fL (80.0-94.0); MEAN PLATELET VOLUME 11.6 fL (7.4-11.4); MONOCYTES # (AUTO) 0.7 10^3/uL (0.0-1.0); MONOCYTES % (AUTO) 7.5 %; NEUTROPHILS # (AUTO) 5.8 10^3/uL (1.5-6.6); NEUTROPHILS % (AUTO) 61.7 %; PLT - PLATELET COUNT 260 10^3/uL (130-450); RED BLOOD COUNT 5.32 10^6/uL (4.70-6.10); RED CELL DISTRIBUTION WIDTH 12.5 % (12.0-15.0); WHITE BLOOD COUNT 9.4 x10^3/uL (4.8-10.8)
--- NOTE | 2021-06-20 18:38 | ED Physician Documentation ---
History of Present Illness - Stated complaint Stated Complaint: ABD PX - Chief complaint Chief Complaint: Abd Pain - Additonal information Additional information: 21-year-old male presents the emergency department for evaluation of epigastric abdominal pain, burning there is some nausea but no he reports this began after eating a [employer] pizza this afternoon. 2 months ago he had similar episodes when eating spicy foods however the symp toms resolved when he took Nexium for a few weeks. He is no longer taking Nexium however. He denies any has any melena or hematochezia. No tobacco use. Rare alcohol. No NSAID use. Takes no prescribed medications. Review of Systems Constitutional: denies: Fever, Chills Eyes: reports: Reviewed and negative Ears: reports: Reviewed and negative Throat: reports: Reviewed and negative Cardiac: reports: Reviewed and negative Respiratory: reports: Reviewed and negative GI: reports: Abdominal Pain, Nausea. denies: Vomiting, Constipation, Hematemesis, Bloody / black stool : denies: Dysuria, Frequency, Hesitancy Skin: denies: Rash, Lesions Musculoskeletal: reports: Reviewed and negative Neurologic: reports: Reviewed and negative Psychiatric: reports: Reviewed and negative PD PAST MEDICAL HISTORY - Past Medical History Cardiovascular: None Respiratory: None Neuro: None Endocrine/Autoimmune: None GI: GERD : None HEENT: None Psych: Anxiety, Panic attacks Musculoskeletal: None Derm: None - Past Surgical History Past Surgical History: Yes - Allergies Allergies/Adverse Reactions: Allergies Allergy/AdvReac Type Severity Reaction Status Date / Time No Known Drug Allergies Allergy Verified 06/20/21 18:22 - Social History Does the pt smoke?: No Smoking Status: Never smoker Does the pt drink ETOH?: Yes Does the pt have substance abuse?: No - Immunizations Immunizations are current?: Yes Immunizations: TDAP >10years/unknown - POLST Patient has POLST: No PD ED PE NORMAL - General General: Alert and oriented X 3, No acute distress - HEENT HEENT: PERRL - Neck Neck: Supple, no meningeal sign - Cardiac Cardiac: RRR, No murmur - Respiratory Respiratory: Clear bilaterally - Abdomen Abdomen: Normal bowel sounds, Soft, Non tender, Non distended - Back Back: No CVA TTP Results - Vitals Vitals: Vital Signs - 24 hr 10/10/21 10/10/21 18:18 18:23 Temperature 36.6 C Heart Rate 60 63 Respiratory 20 13 Rate Blood Pressure 114/60 114/60 O2 Saturation 99 100 Oxygen O2 Source Room air - EKG (time done) 1809 Rate: Rate (enter#) (67) Rhythm: NSR [place]: Normal Intervals: Prolonged QT QRS: Normal Ischemia: Normal ST segments Compare to prior EKG: Old EKG unavailable Computer interpretation: Agree with computer - Labs Labs: Laboratory Tests 06/20/21 06/20/21 06/20/21 18:15 18:15 18:30 WBC 9.4 RBC 5.32 Hgb 15.4 Hct 46.2 MCV 86.8 MCH 28.9 MCHC 33.3 RDW 12.5 Plt Count 260 MPV 11.6 H Neut # (Auto) 5.8 Lymph # (Auto) 2.7 [place] # (Auto) 0.7 Eos # (Auto) 0.1 Baso # (Auto) 0.1 Absolute Nucleated RBC 0.00 Nucleated RBC % 0.0 Sodium 141 Potassium 3.2 L Chloride 102 Carbon Dioxide 24 Anion Gap 15.0 H BUN 12 Creatinine 1.0 Estimated GFR (MDRD) 93 Glucose 111 H Calcium 10.1 Total Bilirubin 0.6 AST 26 ALT 23 Alkaline Phosphatase 60 Total Protein 7.8 Albumin 5.3 Globulin 2.5 Albumin/Globulin Ratio 2.1 Lipase 32 Urine Color YELLOW Urine Clarity CLEAR Urine pH 7.0 Ur Specific [place] 1.020 Urine Protein NEGATIVE Urine Glucose (UA) NEGATIVE Urine Ketones NEGATIVE Urine Occult Blood NEGATIVE Urine Nitrite NEGATIVE Urine Bilirubin NEGATIVE Urine Urobilinogen 0.2 (NORMAL) Ur Leukocyte Esterase NEGATIVE Ur Microscopic Review NOT INDICATED Urine Culture Comments NOT INDICATED PD MEDICAL DECISION MAKING - ED course Complexity details: reviewed results, re-evaluated patient, d/w patient ED course: 21-year-old male brought to the emergency department for evaluation of sudden onset epigastric burning, belching and bloating after eating pizza this afternoon. Had a similar event number of months ago after eating spicy food which resolved when taking Nexium. Today screening EKG is nonischemic. Screening CBC chemistry and troponin are also without acute worrisome abnormalities. Patient was given IV Protonix as well as lidocaine here in the emergency department with full cessation of his symptoms. I do suspect that he is developing some mild acid reflux or gastritis. I have encouraged him to continue to use the Nexium at home. Avoid caffeinated foods greasy foods and spicy foods. If not improved follow-up with [facility] consider EGD. Departure - Departure Disposition: 01 Home, Self Care Clinical Impression: Gastritis Qualifiers: Gastritis type: unspecified gastritis Chronicity: acute Gastritis bleeding: without bleeding Qualified Code(s): K29.00 - Acute gastritis without bleeding Condition: Stable Record reviewed to determine appropriate education?: Yes Instructions: ED Gastritis Comments: Romie you are seen in the emergency department today for upper abdominal discomfort belching and bloating after eating pizza. As we discussed at the bedside your screening EKG chest x-ray and labs are all without worrisome abnormalities. I suspect that you are either developing gastritis which is inflammation of the stomach or having acid reflux which is when the acid can travel out of your stomach and into your esophagus. I would like you to begin taking the Nexium daily as you had a few months ago. Avoid caffeine, spicy foods and greasy foods as this can worsen the symptoms. If your symptoms are not improving please follow-up with [facility]. At that point you may benefit from referral for an endoscopy to look into your stomach. If at any point you have black or bloody stools, have any fainting episodes or worsening symptoms and please return the ER for second evaluation.
[2021-06-20 18:41] LABS: BILIRUBIN,URINE NEGATIVE (NEGATIVE); CLARITY,URINE CLEAR (CLEAR); GLUCOSE, URINE (UA) NEGATIVE (NEGATIVE); KETONES,URINE (UA) NEGATIVE (NEGATIVE); LEUKOCYTE ESTERASE, URINE NEGATIVE (NEGATIVE); NITRITE,URINE NEGATIVE (NEGATIVE); OCCULT BLOOD,URINE NEGATIVE (NEGATIVE); PROTEIN,URINE NEGATIVE (NEGATIVE); UROBILINOGEN,URINE 0.2 (NORMAL) E.U./dL (NORMAL)
[2021-06-20 18:50] LABS: ALBUMIN 5.3 g/dL (3.2-5.5); ALBUMIN/GLOBULIN RATIO 2.1 (1.0-2.2); BILIRUBIN,TOTAL 0.6 mg/dL (0.2-1.0); CALCIUM 10.1 mg/dL (8.5-10.3); POTASSIUM 3.2 mmol/L (3.5-5.0); TOTAL PROTEIN 7.8 g/dL (6.7-8.2)
[2021-06-20 19:09] VITALS: BP 108/59
== END 2021-06-20 19:11 | disposition home or self-care (01) ==
LOC: EDUNIT# → ED 18:07
DX: K29.00 Acute gastritis without bleeding (principal); R94.31 Abnormal electrocardiogram [ECG] [EKG]
CPT/HCPCS: 36415; 80053; 81003; 83690; 85025; 93005; 96374; 99284; A9270; 81001; 87086

== ENCOUNTER 2021-06-25 07:52 | Emergency (ER) | payer OTHER ==
[2021-06-25 08:07] VITALS: BP 114/68
--- NOTE | 2021-06-25 08:20 | ED Physician Documentation ---
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 This is his 11th visit in the last few years for it. Basically weekly or multiple times weekly he has episodes, often triggered by greasy or heavy food where he will vomit. He states the anxiety follows the vomiting and is not the primary problem. [id number] at antacids help. He states PPIs do not particularly help but he is currently taking omeprazole. He has never had an upper endoscopy. He had a bout of this last night but is asymptomatic now but his LPO sent him in for a work note. Review of Systems Constitutional: denies: Fever, Chills Eyes: reports: Reviewed and negative Ears: reports: Reviewed and negative Nose: reports: Reviewed and negative Throat: reports: Reviewed and negative Cardiac: reports: Reviewed and negative Respiratory: reports: Reviewed and negative PD PAST MEDICAL HISTORY - Past Medical History Cardiovascular: None Respiratory: None Neuro: None Endocrine/Autoimmune: None GI: GERD : None HEENT: None Psych: Anxiety, Panic attacks Musculoskeletal: None Derm: None - Past Surgical History Past Surgical History: Yes - Present Medications Home Medications: Ambulatory Orders Medication Instructions Recorded Confirmed Ondansetron Odt [Zofran] 4 mg TL Q6H PRN #20 tablet 06/25/21 - Allergies Allergies/Adverse Reactions: Allergies Allergy/AdvReac Type Severity Reaction Status Date / Time No Known Drug Allergies Allergy Verified 06/25/21 08:07 - Social History Does the pt smoke?: No Smoking Status: Never smoker Does the pt drink ETOH?: Yes Does the pt have substance abuse?: No - Immunizations Immunizations are current?: Yes Immunizations: TDAP >10years/unknown - POLST Patient has POLST: No PD ED PE NORMAL - Vitals Vital signs reviewed: Yes - General General: Alert and oriented X 3, No acute distress - Cardiac Cardiac: RRR, No murmur - Respiratory Respiratory: No respiratory distress, Clear bilaterally - Abdomen Abdomen: Normal bowel sounds, Soft, Non tender - Back Back: No CVA TTP, No spinal TTP - Derm Derm: Normal color, Warm and dry - Extremities Extremities: No edema, No calf tenderness / cord - Neuro Neuro: Alert and oriented X 3, Normal speech Results - Vitals Vitals: Vital Signs - 24 hr 06/25/21 07:57 Temperature 36.4 C L Heart Rate 58 L Respiratory 15 Rate Blood Pressure 114/68 O2 Saturation 100 Oxygen O2 Source Room air PD MEDICAL DECISION MAKING - ED course ED course: 21-year-old gentleman with recurrent bouts of vomiting which seems like gastritis. Given his history it is associated with anxiety, but the anxiety does not seem to be the primary issue. He is never had an upper endoscopy. He is asymptomatic now. Discussed the need for follow-up. 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 You are welcome to return at any time though for further evaluation and treatment or if symptoms worsen. Forms: Activity restrictions
== END 2021-06-25 08:20 | disposition home or self-care (01) ==
LOC: ED 07:52
DX: K29.50 Unspecified chronic gastritis without bleeding (principal); F41.9 Anxiety disorder, unspecified
CPT/HCPCS: 99282; 99284

== ENCOUNTER 2022-10-18 07:30 | Emergency (ER) | payer OTHER ==
[2022-10-18 07:38] VITALS: BP 108/58
[2022-10-18] MEDS ORDERED: ONDANSETRON ODT 4 MG TABLET TL STA (07:51)
[2022-10-18 08:40] LABS: RAPID STREP SCREEN Negative (Negative)
--- NOTE | 2022-10-18 08:50 | ED Physician Documentation ---
History of Present Illness - Stated complaint Stated Complaint: NAUSEA,VOMITING - Chief complaint Chief Complaint: General - History obtained from History obtained from: Patient - Additonal information Additional information: Patient is a 22-year-old male with no significant past medical history presenting for evaluation of 1 week of nonproductive cough, sore throat, mild frontal headache. He also reports ongoing nausea and this morning he had 1 episode of emesis that was just the water he had drank. He reports that often times when he gets sick with cold symptoms he will get nausea and his stomach will feel upset. He has otherwise been able to tolerate p.o. He works at the [employer] at the [employer] and they requested that he come in for an evaluation. He was not able to be seen at the [facility] so presented to the emergency department. He denies fever, chest pain, difficulty breathing, diarrhea, abdominal pain. Review of Systems Constitutional: denies: Fever Throat: reports: Sore throat Cardiac: denies: Chest pain / pressure Respiratory: reports: Cough. denies: Dyspnea GI: reports: Nausea. denies: Abdominal Pain : denies: Dysuria Musculoskeletal: denies: Back pain PD PAST MEDICAL HISTORY - Past Medical History Past Medical History: Yes Cardiovascular: None Respiratory: None Neuro: None Endocrine/Autoimmune: None GI: GERD : None HEENT: None Psych: Anxiety, Panic attacks Musculoskeletal: None Derm: None - Past Surgical History Past Surgical History: Yes - Present Medications Home Medications: Ambulatory Orders Medication Instructions Recorded Confirmed Ondansetron Odt [Zofran] 4 mg TL Q6H PRN #10 tablet 10/18/22 - Allergies Allergies/Adverse Reactions: Allergies Allergy/AdvReac Type Severity Reaction Status Date / Time No Known Drug Allergies Allergy Verified 10/18/22 07:38 - Social History Does the pt smoke?: No Smoking Status: Never smoker Does the pt drink ETOH?: Yes Does the pt have substance abuse?: No - Immunizations Immunizations are current?: Yes Immunizations: TDAP >10years/unknown - POLST Patient has POLST: No PD ED PE NORMAL - General General: Alert and oriented X 3, No acute distress, Well developed/nourished - HEENT HEENT: Atraumatic, Moist mucous membranes, Pharynx benign (No oral swelling, erythema or exudate, normal speech) - Neck Neck: Supple, no meningeal sign - Cardiac Cardiac: RRR - Respiratory Respiratory: No respiratory distress, Clear bilaterally - Abdomen Abdomen: Normal bowel sounds, Soft, Non tender, Non distended - Derm Derm: Warm and dry - Neuro Neuro: Alert and oriented X 3, No motor deficit, Normal speech Results - Vitals Vitals: Vital Signs - 24 hr 10/18/22 07:36 Temperature 36.4 C L Heart Rate 60 Respiratory 16 Rate Blood Pressure 108/58 L O2 Saturation 100 Oxygen O2 Source Room air - Labs Labs: Laboratory Tests 10/18/22 10/18/22 08:00 08:00 Nasal Adenovirus (PCR) NOT DETECTED Nasal B. parapertussis DNA (PCR) NOT DETECTED Nasal Coronavir 229E PCR NOT DETECTED Nasal Coronavir HKU1 PCR NOT DETECTED Nasal Coronavir NL63 PCR NOT DETECTED Nasal Coronavir OC43 PCR NOT DETECTED Nasal Enterovir/Rhinovir PCR NOT DETECTED Nasal Influenza B PCR NOT DETECTED Nasal Influenza A PCR NOT DETECTED Nasal Parainfluen 1 PCR NOT DETECTED Nasal Parainfluen 2 PCR NOT DETECTED Nasal Parainfluen 3 PCR NOT DETECTED Nasal Parainfluen 4 PCR NOT DETECTED Nasal RSV (PCR) NOT DETECTED Nasal B.pertussis DNA PCR NOT DETECTED Nasal C.pneumoniae (PCR) NOT DETECTED Alejandro Human Metapneumo PCR NOT DETECTED Nasal M.pneumoniae (PCR) NOT DETECTED Nasal SARS-CoV-2 (PCR) NOT DETECTED Group A Strep Rapid Negative PD Medical Decision Making - ED course Complexity details: reviewed results ED course: Patient with URI symptoms and an episode of nausea and vomiting this morning. His abdominal exam is benign And nonsurgical. He reports often having nausea when he is feeling under the weather.His vital signs appear stable. He does have a headache but no red flag signs or symptoms in regards to the headache and do not feel imaging is necessary at this time. His lung sounds are clear and clinically does not have findings to suggest pneumonia. His strep swab is negative and respiratory panel is pending.He is feeling better after Zofran and is tolerating p.o. Discussed continued supportive care as well as concerning symptoms to return for. Departure - Departure Disposition: 01 Home, Self Care Clinical Impression: Viral pharyngitis, URI (upper respiratory infection), Nausea & vomiting Condition: Stable Instructions: ED Pharyngitis Viral, ED Nausea Vomiting Prescriptions: Ondansetron Odt [Zofran] 4 mg TL Q6H PRN #10 tablet PRN Reason: Nausea / Vomiting Comments: Your strep test is negative. I have sent a prescription for anti nausea medication [facility] in [place]. Please make sure you stay hydrated and are eating small meals. If you have any worsening symptoms such as abdominal pain, continued vomiting or any new concerns please return to the emergency department. Your respiratory panel is pending. This will check for COVID, influenza, RSV and a number of other common cold viruses. We will notify you if it is positive for COVID. Otherwise you can check the patient portal for your results. Please continue with acetaminophen or ibuprofen as needed for fevers and body aches, plenty of fluids/hydration and rest. Return to the ER with any worsening symptoms such as difficulty breathing or vomiting. Forms: Activity restrictions Discharge Date/Time: 10/18/22 09:09
[2022-10-18 09:19] LABS: B. PARAPERTUSSIS- RESP PCR PAN NOT DETECTED; B. PERTUSSIS- RESP PCR PANEL NOT DETECTED; C. PNEUMONIAE- RESP PCR PANEL NOT DETECTED; CORONAVIRUS 229E-RESP PCR NOT DETECTED; CORONAVIRUS HKU1-RESP PCR NOT DETECTED; CORONAVIRUS NL63-RESP PCR NOT DETECTED; CORONAVIRUS OC43-RESP PCR NOT DETECTED; HUMAN METAPNEUMOVIRUS NOT DETECTED; INFLUENZA A- RESP PCR PANEL NOT DETECTED; INFLUENZA B - RESP PCR PANEL NOT DETECTED; M. PNEUMONIAE- RESP PCR PANEL NOT DETECTED; PARAINFLUENZA VIRUS 1 NOT DETECTED; PARAINFLUENZA VIRUS 2 NOT DETECTED; PARAINFLUENZA VIRUS 3 NOT DETECTED; PARAINFLUENZA VIRUS 4 NOT DETECTED; RHINOVIRUS/ENTEROVIRUS NOT DETECTED; RSV- RESP PCR PANEL NOT DETECTED; SARS-CoV-2 -RESP PCR PANEL NOT DETECTED
--- NOTE | 2022-10-19 11:45 | ED Physician Documentation ---
ED Addendum - Addendum Addendum: 10/19/22 11:44 Seen yesterday in the emergency department. Initial strep negative. Subsequent culture positive. Called patient. He was not feeling better. We will send prescription for penicillin to the preferred pharmacy [facility]
== END 2022-10-18 09:09 | disposition home or self-care (01) ==
LOC: ED 07:30
DX: J02.8 Acute pharyngitis due to other specified organisms (principal); J06.9 Acute upper respiratory infection, unspecified; R11.2 Nausea with vomiting, unspecified; Z20.822 Contact with and (suspected) exposure to COVID-19
CPT/HCPCS: 87070; 87430; 87633; 99283; Q0162

== ENCOUNTER 2022-10-21 08:06 | Emergency (ER) | payer OTHER | END 2022-10-21 08:26 | disposition home or self-care (01) | LOC: ED 08:06 | DX: Z53.21 Procedure and treatment not carried out due to patient leaving prior to being seen by health care provider (principal) ==

== ENCOUNTER 2023-01-10 06:14 | Emergency (ER) | payer OTHER ==
[2023-01-10 07:21] LABS: BASOPHILS # (AUTO) 0.1 10^3/uL (0.0-0.1); BASOPHILS % (AUTO) 0.8 %; EOSINOPHILS # (AUTO) 0.3 10^3/uL (0.0-0.7); EOSINOPHILS % (AUTO) 4.6 %; HCT - HEMATOCRIT 46.1 % (42.0-52.0); HGB - HEMOGLOBIN 15.3 g/dL (14.0-18.0); LYMPHOCYTES # (AUTO) 2.1 10^3/uL (1.5-3.5); LYMPHOCYTES % (AUTO) 32.8 %; MEAN CORPUSCULAR HEMOGLOBIN 28.7 pg (27.0-31.0); MEAN CORPUSCULAR HGB CONC 33.2 g/dL (32.0-36.0); MEAN CORPUSCULAR VOLUME 86.3 fL (80.0-94.0); MEAN PLATELET VOLUME 10.7 fL (7.4-11.4); MONOCYTES # (AUTO) 0.5 10^3/uL (0.0-1.0); MONOCYTES % (AUTO) 8.3 %; NEUTROPHILS # (AUTO) 3.5 10^3/uL (1.5-6.6); PLT - PLATELET COUNT 250 10^3/uL (130-450); RED BLOOD COUNT 5.34 10^6/uL (4.70-6.10); RED CELL DISTRIBUTION WIDTH 12.7 % (12.0-15.0); WHITE BLOOD COUNT 6.5 x10^3/uL (4.8-10.8)
--- NOTE | 2023-01-10 07:24 | ED Physician Documentation ---
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 On Monday he had diarrhea and was starting to do better yesterday. He had a meal of vegetables, mashed cauliflower, turkey burger At work and overnight had several episodes of emesis consisting of food. He believes there was another person at work who also recently had a stomach illness. He denies any blood in emesis or stools. The diarrhea has stopped. He reports that Generalized abdominal discomfort after vomiting but otherwise denies pain. Denies fever, cough, congestion. He denies dysuria, hematuria. Review of Systems Constitutional: denies: Fever Cardiac: denies: Chest pain / pressure Respiratory: denies: Dyspnea GI: reports: Nausea, Vomiting, Diarrhea. denies: Bloody / black stool : denies: Dysuria, Hematuria Musculoskeletal: denies: Back pain Neurologic: denies: Headache PD PAST MEDICAL HISTORY - Past Medical History Cardiovascular: None Respiratory: None Neuro: None Endocrine/Autoimmune: None GI: GERD : None HEENT: None Psych: Anxiety, Panic attacks Musculoskeletal: None Derm: None - Past Surgical History Past Surgical History: Yes - Present Medications Home Medications: Ambulatory Orders Medication Instructions Recorded Confirmed Ondansetron Odt [Zofran] 4 mg TL Q6H PRN #10 tablet 10/18/22 Penicillin V Potassium 500 mg PO BID #20 tablet 10/19/22 Ondansetron Odt [Zofran] 4 mg TL Q6H PRN #10 tablet 01/10/23 - Allergies Allergies/Adverse Reactions: Allergies Allergy/AdvReac Type Severity Reaction Status Date / Time No Known Drug Allergies Allergy Verified 10/18/22 07:38 - Social History Does the pt smoke?: No Smoking Status: Never smoker Does the pt drink ETOH?: Yes Does the pt have substance abuse?: No - Immunizations Immunizations are current?: Yes Immunizations: TDAP >10years/unknown - POLST Patient has POLST: No PD ED PE NORMAL - General General: Alert and oriented X 3, No acute distress, Well developed/nourished - HEENT HEENT: Atraumatic, Moist mucous membranes, Pharynx benign - Neck Neck: Supple, no meningeal sign - Cardiac Cardiac: RRR - Respiratory Respiratory: No respiratory distress, Clear bilaterally - Abdomen Abdomen: Normal bowel sounds, Soft, Non tender, Non distended - Derm Derm: Warm and dry - Neuro Neuro: Normal speech Results - Vitals Vitals: Vital Signs - 24 hr 01/10/23 01/10/23 06:19 08:30 Temperature 36.6 C 37 C Heart Rate 64 58 L Respiratory 18 20 Rate Blood Pressure 112/79 110/72 O2 Saturation 100 98 Oxygen O2 Source Room air - Labs Labs: Laboratory Tests 01/10/23 01/10/23 07:17 07:17 WBC 6.5 RBC 5.34 Hgb 15.3 Hct 46.1 MCV 86.3 MCH 28.7 MCHC 33.2 RDW 12.7 Plt Count 250 MPV 10.7 Neut # (Auto) 3.5 Lymph # (Auto) 2.1 [place] # (Auto) 0.5 Eos # (Auto) 0.3 Baso # (Auto) 0.1 Absolute Nucleated RBC 0.00 Nucleated RBC % 0.0 Sodium 139 Potassium 4.3 Chloride 101 Carbon Dioxide 30 Anion Gap 8.0 BUN 13 Creatinine 0.9 Estimated GFR (MDRD) 105 Glucose 105 H Calcium 9.6 Total Bilirubin 0.4 AST 28 ALT 26 Alkaline Phosphatase 56 Total Protein 7.6 Albumin 4.7 Globulin 2.9 Albumin/Globulin Ratio 1.6 Lipase 40 PD Medical Decision Making - ED course Complexity details: reviewed results, re-evaluated patient, d/w patient ED course: Patient is a 22-year-old male presenting for evaluation of several episodes of emesis last night. Prior to that he had diarrhea. Abdominal exam is benign with stable vital signs. CBC and chemistries reviewed without significant findings.Patient did well with p.o. Zofran and oral challenge. He did not have any further episodes of vomiting or diarrhea here. Patient symptoms are likely related to a viral illness and he was counseled on continued supportive care. However he is advised on strict return precautions for any new or worsening symptoms. Departure - Departure Disposition: 01 Home, Self Care Clinical Impression: Nausea and vomiting Condition: Stable Instructions: ED Nausea Vomiting, ED Vomiting Diarrhea Nonspecific Ad Prescriptions: Ondansetron Odt [Zofran] 4 mg TL Q6H PRN #10 tablet PRN Reason: Nausea / Vomiting Comments: Your labs today are reassuring with normal electrolytes and normal white count. Your symptoms could be related to a viral illness. If this is the case I would expect it to get better soon. I have sent a prescription for antinausea medication called Pawan to [facility] in [place]. I would continue with liquids and a bland diet today. If you develop any worsening symptoms such as fever, vomiting despite use of medications, increased abdominal pain or pain is settling in 1 location (such as the right side of your abdomen), blood in vomit or stools then please return to the emergency department. Forms: Activity restrictions Discharge Date/Time: 01/10/23 08:32
[2023-01-10] MEDS: ONDANSETRON ODT 4 MG TABLET TL STA (07:28)
[2023-01-10 07:43] LABS: ALBUMIN 4.7 g/dL (3.2-5.5); ALBUMIN/GLOBULIN RATIO 1.6 (1.0-2.2); BILIRUBIN,TOTAL 0.4 mg/dL (0.2-1.0); CALCIUM 9.6 mg/dL (8.5-10.3); CREATININE 0.9 mg/dL (0.6-1.2); POTASSIUM 4.3 mmol/L (3.5-5.0); TOTAL PROTEIN 7.6 g/dL (6.7-8.2)
[2023-01-10 08:32] VITALS: BP 110/72
== END 2023-01-10 08:32 | disposition home or self-care (01) ==
LOC: ED 06:14
DX: R11.2 Nausea with vomiting, unspecified (principal)
CPT/HCPCS: 36415; 80053; 83690; 85025; 99283; Q0162

== ENCOUNTER 2023-11-24 08:47 | Emergency (ER) | payer OTHER ==
[2023-11-24 09:05] VITALS: O2SAT 100
--- NOTE | 2023-11-24 09:23 | XRAY Report ---
PROCEDURE: Foot 3+V LT INDICATIONS: Trauma TECHNIQUE: 3 views of the foot were acquired. COMPARISON: None. FINDINGS: Bones: Nondisplaced fracture of the medial aspect of the base of the distal phalanx of the great toe extending to the articular surface. No suspicious bony lesions. Soft tissues: No tibiotalar joint effusion. Achilles tendon appears normal. IMPRESSION: Nondisplaced fracture of the medial aspect of the base of the distal phalanx of the great toe extendi ng to the articular surface. Reviewed by: Arvind Cotter MD on 11/24/2023 9:22 AM PDT Approved by: Arvind Cotter MD on 11/24/2023 9:22 AM PDT Station ID: [id number]
--- NOTE | 2023-11-24 12:07 | ED Physician Documentation ---
PD HPI LOWER EXT INJURY - Stated complaint Stated Complaint: LT TOE INJ - Chief complaint Chief Complaint: Ext Problem - History obtained from History obtained from: Patient - History of Present Illness PD HPI LOW EXT INJURY LOCATION: Left - Additional information Additional information: 2 days ago he came down wrong on his left great toe while doing physical e xercise. He has pain of the left great toe. No other injuries. He is active duty in the [employer]. PD PAST MEDICAL HISTORY - Past Medical History Cardiovascular: None Respiratory: None Neuro: None Endocrine/Autoimmune: None GI: GERD : None HEENT: None Psych: Anxiety, Panic attacks Musculoskeletal: None Derm: None - Past Surgical History Past Surgical History: Yes - Present Medications Home Medications: Ambulatory Orders Medication Instructions Recorded Confirmed No Known Home Medications 11/24/23 11/24/23 - Allergies Allergies/Adverse Reactions: Allergies Allergy/AdvReac Type Severity Reaction Status Date / Time No Known Drug Allergies Allergy Verified 11/24/23 09:01 - Social History Does the pt smoke?: No Smoking Status: Never smoker Does the pt drink ETOH?: Yes Does the pt have substance abuse?: No - Immunizations Immunizations are current?: Yes Immunizations: TDAP >10years/unknown - POLST Patient has POLST: No PD ED PE NORMAL - Vitals Vital signs reviewed: Yes - General General: Alert and oriented X 3, No acute distress - Extremities Extremities: No calf tenderness / cord, Other (The interphalangeal joint area of the left great toe is quite bruised, no subungual hematoma. No tenderness at the MCP.) Results - Vitals Vitals: Vital Signs - 24 hr 11/24/23 08:57 Temperature 36.5 C Heart Rate 70 Respiratory 16 Rate Blood Pressure 109/59 L O2 Saturation 100 Oxygen O2 Source Room air - Rads (name of study) Foot XR Relevant Findings:: Final report received, EMP independent interpretation of test (He has a fracture of the distal phalanx of the left great toe, a chip fracture on the lateral side.) PD Medical Decision Making - ED course ED course: He has a nondisplaced fracture of the distal phalanx of left great toe. Placed in a fracture shoe and discussed healing and follow-up. Departure - Departure Disposition: 01 Home, Self Care Clinical Impression: Fracture of left great toe Condition: Good Record reviewed to determine appropriate education?: Yes Instructions: ED Fx Toe Closed Comments: Make sure your flight surgeon is aware of this injury, probably have a check with them in a week or 2. You should heal fully though. Tylenol and/or ibuprofen as needed for pain. Return if worse. Forms: PCP List, Activity restrictions
[2023-11-24 13:00] VITALS: BP 111/60
== END 2023-11-24 12:58 | disposition home or self-care (01) ==
LOC: ED 08:47
DX: S92.425A Nondisplaced fracture of distal phalanx of left great toe, initial encounter for closed fracture (principal); X58.XXXA Exposure to other specified factors, initial encounter; Y93.89 Activity, other specified
CPT/HCPCS: 99283

== ENCOUNTER 2024-03-17 03:41 | Emergency (ER) | payer OTHER ==
--- NOTE | 2024-03-17 03:46 | ED Physician Documentation ---
PD HPI LOWER EXT INJURY - Stated complaint Stated Complaint: RT FT PX PD PAST MEDICAL HISTORY - Past Medical History Cardiovascular: None Respiratory: None Neuro: None Endocrine/Autoimmune: None GI: GERD : None HEENT: None Psych: Anxiety, Panic attacks Musculoskeletal: None Derm: None - Past Surgical History Past Surgical History: Yes - Present Medications Home Medications: Ambulatory Orders Medication Instructions Recorded Confirmed No Known Home Medications 11/24/23 11/24/23 - Allergies Allergies/Adverse Reactions: Allergies Allergy/AdvReac Type Severity Reaction Status Date / Time No Known Drug Allergies Allergy Verified 11/24/23 09:01 - Social History Does the pt smoke?: No Smoking Status: Never smoker Does the pt drink ETOH?: Yes Does the pt have substance abuse?: No - Immunizations Immunizations are current?: Yes Immunizations: TDAP >10years/unknown - POLST Patient has POLST: No Results - Vitals Vitals: Oxygen O2 Source Room air
--- NOTE | 2024-03-17 04:07 | ED Physician Documentation ---
History of Present Illness - Stated complaint Stated Complaint: RT FT PX - Chief complaint Chief Complaint: Ext Problem - History obtained from History obtained from: Patient - Additonal information Additional information: HPI from patient. Patient c/o lesion on plantar surface of right foot associated with burning discomfort and scant thick d/c. He first noticed this lesion this morning, denies h/o similar. No exacerbating nor ameliorating factors. Review of Systems Skin: reports: Lesions Musculoskeletal: reports: Extremity pain. denies: Extremity swelling PD PAST MEDICAL HISTORY - Past Medical History Past Medical History: Yes Cardiovascular: None Respiratory: None Neuro: None Endocrine/Autoimmune: None GI: GERD : None HEENT: None Psych: Anxiety, Panic attacks Musculoskeletal: None Derm: None - Past Surgical History Past Surgical History: Yes - Present Medications Home Medications: Ambulatory Orders Medication Instructions Recorded Confirmed Clotrimazole 1% Cream [Lotrimin 1% 1 film TOP BID #30 gm 03/17/24 Cream] Doxycycline [Vibramycin] 100 mg PO BID #10 tablet 03/17/24 - Allergies Allergies/Adverse Reactions: Allergies Allergy/AdvReac Type Severity Reaction Status Date / Time No Known Drug Allergies Allergy Verified 03/17/24 03:47 - Social History Does the pt smoke?: No Smoking Status: Never smoker Does the pt drink ETOH?: Yes Does the pt have substance abuse?: No - Immunizations Immunizations are current?: Yes Immunizations: TDAP >10years/unknown - POLST Patient has POLST: No PD ED PE NORMAL - Vitals Vital signs reviewed: Yes - General General: Alert and oriented X 3, No acute distress, Well developed/nourished PD ED PE EXPANDED - Extremities Feet visual: 1 - rash (flat, scaly hyperpigmented lesion with sharp borders. within the lesion, there are two punctate areas with serosanguinous drainage. no fluctuance, no purulence, mildly TTP) 2 - rash (similar lesion to (1) except no skin defects nor discharge; this lesion is hyperpigmented with sharp borders, small area of confluence with fourth intertriginous space which has findings c/w tinea pedis) Results - Vitals Vitals: Oxygen O2 Source Room air PD Medical Decision Making - ED course Complexity details: considered differential, d/w patient ED course: lesions on dorsum of right foot are c/w tinea pedis, and the lateral-most lesion has small area of confluence with fourth interdigital space where there is mild but obvious tinea pedis. E-prescribed clotrimazole. Diagnosis and prognosis discussed, return precautions reviewed. Patient is describing purulent discharge (thick, discolored) although not evident on exam. Rather than have him apply topical antibiotic (such as bacitracin) BID and having to space out application of this from the BID clotrimazole, will skip topical abx and instead given doxycycline 100mg PO in ED with rx for 5 day course of same (this is to cover possibility of secondary bacterial infection) Departure - Departure Disposition: 01 Home, Self Care Clinical Impression: Tinea pedis Condition: Good Instructions: ED Fungal Infec Athlete Foot Follow-Up: ANNA Carlton [Provider Group] Prescriptions: Clotrimazole 1% Cream [Lotrimin 1% Cream] 1 film TOP BID #30 gm Doxycycline [Vibramycin] 100 mg PO BID #10 tablet Comments: I have electronically submitted prescriptions for the antibiotic (doxycycline, 5-day course) and the antifungal (clotrimazole, twice per day for 2 to 4 weeks) to the [facility] pharmacy in [place]. As we discussed, the antifungal medication is to be used for a minimum of 2 weeks; continue using the clotrimazole for up to four weeks, but you can stop at any time between the 2 to 4 week period IF YOUR SYMPTOMS HAVE COMPLETELY RESOLVED. If symptoms persists after four weeks of use of the anti-fungal medication, follow up with your primary care provider. Discharge Date/Time: 03/17/24 04:40
[2024-03-17] MEDS: DOXYCYCLINE 100 MG TABLET PO STA (04:38)
[2024-03-17 04:46] VITALS: BP 121/67; O2SAT 98
== END 2024-03-17 04:40 | disposition home or self-care (01) ==
LOC: ED 03:41
DX: B35.3 Tinea pedis (principal)
CPT/HCPCS: 99283; A9270